=== PATIENT | female | born 1950 | race Caucasian/White ===

== ENCOUNTER 2017-11-07 17:25 | Emergency (ER) | payer MEDICARE, OTHER ==
[~2017-11-07] VITALS: Ht 152.4 cm; Wt 61.2 kg
[~2017-11-07 17:25] MED LIST: ACETAMINOPHEN325 M1 PO; ADVAIR 250-501 EACH INH; ADVAIR HFA 45-218 GM; ALBUTEROL INHAL17 GM IH; ALBUTEROL2.5 MG/3 M IH; ALBUTEROL2.5 MG/32; AMITRIPTYLINE H10 M1; AMITRIPTYLINE H10 M1 PO; ASTAPRO; AZELAST NASAL137 MC1 INH; CARAFATE1 GM/10 ML PO; CEVIMELINE HCL30 MG PO; CIPRO250 M1; CIPROFLOXACIN; CLEOCIN PA75 MG/5 ML PO; CLONAZEPAM; CLONAZEPAM 0.50.5 M1 PO; COLACE100 MG PO; CRESTOR5 MG; CRESTOR5 MG PO; DOCUSATE SODIU100 MG; ENOXAPARIN40 MG/0.1 INJECTION; HYDROCODON-ACE1 EAC5 PO; HYDROCODON-ACE1 EAC7; LASIX 20 MG TAB20 MG PO; LASIX 40 MG TAB40 M1; LIDODERM 5%1 PATC1 TOP; LIDODERM 5%1 PATCH; MIRALAX255 GM PO; MOM PO; NEXIUM; NEXIUM 40 MG CA40 M1 PO; NYSTATIN 100,0015 GM TOP; PERCOCET 5-3251 EACH PO; PHENERGAN 25 MG25 M1 PO; PHENERGAN 25 MG25 MG PO; POTASSIUM20 PO; PREDNISONE; PREDNISONE 10 M10 MG PO; PREDNISONE50 MG PO; PROVENTIL HFA6.7 G1 INH; SYNTHROID; SYNTHROID50 MCG PO; VALIUM2 MG PO; VICODIN 5-5001 EACH PO; VICODIN HP 10-1 EAC1 PO; ZOFRAN ODT4 MG PO; potassium PO
[2017-11-07] MEDS ORDERED: CLINDAMYCI75 MG/5 ML PO (18:26)
[2017-11-07] MEDS ORDERED: ACYCLOVIR200 MG/52 PO (18:26)
[2017-11-07 18:41] VITALS: BP 155/74
== END 2017-11-07 18:41 | disposition home or self-care (01) ==
LOC: M.ERS 17:25
DX: B02.9 Zoster without complications (principal); G43.909 Migraine, unspecified, not intractable, without status migrainosus; J45.909 Unspecified asthma, uncomplicated; M81.0 Age-related osteoporosis without current pathological fracture; Z88.5 Allergy status to narcotic agent; Z88.2 Allergy status to sulfonamides; Z88.0 Allergy status to penicillin; Z88.8 Allergy status to other drugs, medicaments and biological substances; Z88.1 Allergy status to other antibiotic agents; Z86.14 Personal history of Methicillin resistant Staphylococcus aureus infection; Z96.643 Presence of artificial hip joint, bilateral

== ENCOUNTER → 2018-02-13 | Outpatient (CLI) | payer MEDICARE, OTHER ==
[~2018-02-13] MED LIST changes: +ACYCLOVIR200 MG/52 PO; +CLINDAMYCI75 MG/5 ML PO; +CYCLOBENZAPRINE5 MG PO; +ZANAFLEX2 MG PO
== END ==
LOC: M.CT 14:45
DX: M47.892 Other spondylosis, cervical region (principal)

== ENCOUNTER → 2018-03-23 | Outpatient (CLI) | payer MEDICARE, OTHER | LOC: M.RAD 15:30 | DX: M40.295 Other kyphosis, thoracolumbar region (principal); M43.8X5 Other specified deforming dorsopathies, thoracolumbar region ==

== ENCOUNTER → 2018-03-31 | Outpatient (CLI) | payer MEDICARE, OTHER | LOC: M.RAD 15:18 | DX: M54.2 Cervicalgia (principal); M25.78 Osteophyte, vertebrae; V89.2XXD Person injured in unspecified motor-vehicle accident, traffic, subsequent encounter ==

== ENCOUNTER → 2018-04-03 | Outpatient (CLI) | payer MEDICARE, OTHER | LOC: M.NUC 03-26 13:44 | DX: M54.6 Pain in thoracic spine (principal); M47.895 Other spondylosis, thoracolumbar region ==

== ENCOUNTER 2018-06-21 16:49 | Emergency (ER) | payer MEDICARE, OTHER ==
[~2018-06-21] VITALS: Ht 152.4 cm; Wt 61.7 kg
[~2018-06-21 16:49] MED LIST changes: -CYCLOBENZAPRINE5 MG PO; -ZANAFLEX2 MG PO
[2018-06-21 17:47] LABS: URINE BILIRUBIN NEGATIVE (Negative); URINE BLOOD NEGATIVE (Negative); URINE CLARITY CLEAR; URINE COLOR YELLOW; URINE GLUCOSE-RANDOM NEGATIVE (Negative); URINE KETONES NEGATIVE (Negative); URINE LEUKOCYTES-REFLEX NEGATIVE (Negative); URINE NITRITE-REFLEX NEGATIVE (Negative); URINE PROTEIN NEGATIVE (Negative); URINE UROBILINOGEN 0.2 E.U./dl (0.2-1.0)
[2018-06-21] MEDS ORDERED: CYCLOBENZAPRINE5 MG PO (18:02)
[2018-06-21 18:09] VITALS: BP 142/72
== END 2018-06-21 18:10 | disposition home or self-care (01) ==
LOC: M.ERS 16:49
PROVIDERS: Nurse Practitioner Family
DX: S16.1XXA Strain of muscle, fascia and tendon at neck level, initial encounter (principal); S00.83XA Contusion of other part of head, initial encounter; R30.0 Dysuria; G43.909 Migraine, unspecified, not intractable, without status migrainosus; F31.9 Bipolar disorder, unspecified; J45.909 Unspecified asthma, uncomplicated; M81.0 Age-related osteoporosis without current pathological fracture; N30.10 Interstitial cystitis (chronic) without hematuria; Z86.14 Personal history of Methicillin resistant Staphylococcus aureus infection; Z96.643 Presence of artificial hip joint, bilateral; Z88.6 Allergy status to analgesic agent; Z88.5 Allergy status to narcotic agent; Z88.0 Allergy status to penicillin; Z88.2 Allergy status to sulfonamides; Z91.041 Radiographic dye allergy status; Z88.8 Allergy status to other drugs, medicaments and biological substances; W17.89XA Other fall from one level to another, initial encounter; Y93.89 Activity, other specified; Y92.512 Supermarket, store or market as the place of occurrence of the external cause; Y99.8 Other external cause status

== ENCOUNTER → 2018-06-25 | Outpatient (CLI) | payer MEDICARE, OTHER ==
[~2018-06-25] MED LIST changes: +CYCLOBENZAPRINE5 MG PO; +ZANAFLEX2 MG PO
== END ==
LOC: M.RAD 06-19 14:45
DX: Z12.31 Encounter for screening mammogram for malignant neoplasm of breast (principal)

== ENCOUNTER → 2018-09-01 | Outpatient (CLI) | payer MEDICARE, OTHER ==
[~2018-09-01] MED LIST changes: -ZANAFLEX2 MG PO
== END ==
LOC: M.RAD 15:45
DX: K44.9 Diaphragmatic hernia without obstruction or gangrene (principal); J98.11 Atelectasis; S32.009A Unspecified fracture of unspecified lumbar vertebra, initial encounter for closed fracture; M54.5 Low back pain; G89.29 Other chronic pain; M15.9 Polyosteoarthritis, unspecified; R53.82 Chronic fatigue, unspecified; F32.9 Major depressive disorder, single episode, unspecified; X58.XXXA Exposure to other specified factors, initial encounter; Y93.89 Activity, other specified; Y92.89 Other specified places as the place of occurrence of the external cause; Y99.8 Other external cause status

== ENCOUNTER → 2018-09-03 | Outpatient (CLI) | payer MEDICARE, OTHER | LOC: M.CT 14:00 | DX: J98.11 Atelectasis (principal); K44.9 Diaphragmatic hernia without obstruction or gangrene ==

== ENCOUNTER 2018-10-03 17:39 | Emergency (ER) | payer MEDICARE, OTHER ==
[~2018-10-03] VITALS: Ht 152.4 cm; Wt 63.5 kg
[2018-10-03] MEDS ORDERED: ZANAFLEX2 MG PO (18:47)
[2018-10-03 19:36] VITALS: BP 139/78
== END 2018-10-03 19:36 | disposition home or self-care (01) ==
LOC: M.ERS 17:39
DX: M25.512 Pain in left shoulder (principal); G43.909 Migraine, unspecified, not intractable, without status migrainosus; F31.9 Bipolar disorder, unspecified; J45.909 Unspecified asthma, uncomplicated; M81.0 Age-related osteoporosis without current pathological fracture; N30.10 Interstitial cystitis (chronic) without hematuria; Z86.14 Personal history of Methicillin resistant Staphylococcus aureus infection; Z88.0 Allergy status to penicillin; Z88.2 Allergy status to sulfonamides; Z88.1 Allergy status to other antibiotic agents; Z88.6 Allergy status to analgesic agent; Z88.8 Allergy status to other drugs, medicaments and biological substances; Z96.643 Presence of artificial hip joint, bilateral

== ENCOUNTER → 2018-10-29 | Outpatient (CLI) | payer MEDICARE, OTHER ==
[~2018-10-29] MED LIST changes: +ZANAFLEX2 MG PO
== END ==
LOC: M.RAD 15:09
DX: M47.812 Spondylosis without myelopathy or radiculopathy, cervical region (principal); M43.12 Spondylolisthesis, cervical region; V89.2XXA Person injured in unspecified motor-vehicle accident, traffic, initial encounter

== ENCOUNTER 2018-11-22 14:31 | Emergency (ER) | payer MEDICARE, OTHER ==
[~2018-11-22] VITALS: Ht 152.4 cm; Wt 61.2 kg
[2018-11-22] MEDS ORDERED: CIPRO250 M1 PO (14:45)
[2018-11-22 15:43] VITALS: BP 145/67
== END 2018-11-22 15:45 | disposition home or self-care (01) ==
LOC: M.ERS 14:31
DX: G43.909 Migraine, unspecified, not intractable, without status migrainosus (principal); G89.29 Other chronic pain; M25.512 Pain in left shoulder; Z88.0 Allergy status to penicillin; Z88.2 Allergy status to sulfonamides; Z88.5 Allergy status to narcotic agent; Z88.6 Allergy status to analgesic agent; Z88.8 Allergy status to other drugs, medicaments and biological substances

== ENCOUNTER → 2019-01-19 | Outpatient (CLI) | payer MEDICARE, OTHER ==
[~2019-01-19] MED LIST changes: +CIPRO250 M1 PO
== END ==
LOC: M.RAD 11:01
DX: M25.551 Pain in right hip (principal); Z96.643 Presence of artificial hip joint, bilateral; Z88.0 Allergy status to penicillin; Z88.8 Allergy status to other drugs, medicaments and biological substances

== ENCOUNTER → 2019-04-09 | Outpatient (CLI) | payer MEDICARE, OTHER ==
[2019-04-09 10:41] LABS: CREATININE 0.8 mg/dL (0.6-1.3)
== END ==
LOC: M.LAB 10:00 → M.CT 11:00
PROVIDERS: Internal Medicine
DX: M48.55XA Collapsed vertebra, not elsewhere classified, thoracolumbar region, initial encounter for fracture (principal); K42.9 Umbilical hernia without obstruction or gangrene; K44.9 Diaphragmatic hernia without obstruction or gangrene; N23 Unspecified renal colic; G89.29 Other chronic pain; K57.30 Diverticulosis of large intestine without perforation or abscess without bleeding; M51.36 Other intervertebral disc degeneration, lumbar region; Z96.643 Presence of artificial hip joint, bilateral

== ENCOUNTER 2019-04-25 19:21 | Emergency (ER) | payer MEDICARE, OTHER ==
[~2019-04-25] VITALS: Ht 152.4 cm; Wt 62.6 kg
[2019-04-25 21:00] VITALS: BP 138/59
== END 2019-04-25 21:00 | disposition home or self-care (01) ==
LOC: M.ERS 19:21
DX: G44.209 Tension-type headache, unspecified, not intractable (principal); G43.909 Migraine, unspecified, not intractable, without status migrainosus; Z88.6 Allergy status to analgesic agent; Z88.1 Allergy status to other antibiotic agents; Z88.5 Allergy status to narcotic agent; Z91.041 Radiographic dye allergy status; Z88.0 Allergy status to penicillin; Z88.2 Allergy status to sulfonamides; Z88.8 Allergy status to other drugs, medicaments and biological substances

== ENCOUNTER 2019-06-26 20:17 | Emergency (ER) | payer MEDICARE, OTHER ==
[~2019-06-26] VITALS: Ht 152.4 cm; Wt 62.1 kg
[2019-06-26] MEDS ORDERED: LIORESAL 10 MG10 MG PO (20:39)
[2019-06-26 21:23] VITALS: BP 135/60
== END 2019-06-26 21:24 | disposition home or self-care (01) ==
LOC: M.ERS 20:17
DX: G43.909 Migraine, unspecified, not intractable, without status migrainosus (principal); J45.909 Unspecified asthma, uncomplicated; G89.29 Other chronic pain; M54.9 Dorsalgia, unspecified; M81.0 Age-related osteoporosis without current pathological fracture; Z90.12 Acquired absence of left breast and nipple; Z86.14 Personal history of Methicillin resistant Staphylococcus aureus infection; Z96.643 Presence of artificial hip joint, bilateral; Z88.5 Allergy status to narcotic agent; Z88.1 Allergy status to other antibiotic agents; Z88.2 Allergy status to sulfonamides; Z88.8 Allergy status to other drugs, medicaments and biological substances; Z88.6 Allergy status to analgesic agent; Z91.041 Radiographic dye allergy status; Z88.0 Allergy status to penicillin

== ENCOUNTER 2019-07-24 17:05 | Emergency (ER) | payer MEDICARE, OTHER ==
[~2019-07-24] VITALS: Ht 152.4 cm; Wt 63.5 kg
[~2019-07-24 17:05] MED LIST changes: +LIORESAL 10 MG10 MG PO
[2019-07-24 17:23] VITALS: BP 150/79
== END 2019-07-24 18:24 | disposition home or self-care (01) ==
LOC: M.ERS 17:05
DX: G43.909 Migraine, unspecified, not intractable, without status migrainosus (principal); F31.9 Bipolar disorder, unspecified; Z88.6 Allergy status to analgesic agent; Z88.1 Allergy status to other antibiotic agents; Z88.5 Allergy status to narcotic agent; Z91.041 Radiographic dye allergy status; Z88.0 Allergy status to penicillin; Z88.2 Allergy status to sulfonamides; Z88.8 Allergy status to other drugs, medicaments and biological substances; Z96.641 Presence of right artificial hip joint; Z96.642 Presence of left artificial hip joint

== ENCOUNTER → 2019-08-20 | Outpatient (CLI) | payer MEDICARE, OTHER | LOC: M.RAD 14:03 | DX: Z12.31 Encounter for screening mammogram for malignant neoplasm of breast (principal) ==

== ENCOUNTER 2019-08-21 19:45 | Emergency (ER) | payer MEDICARE, OTHER ==
[~2019-08-21] VITALS: Ht 152.4 cm; Wt 63.5 kg
[2019-08-21 21:12] LABS: ABSOLUTE LYMPHOCYTES 0.9 thou/uL (0.8-5.3); ABSOLUTE MONOCYTES 0.5 thou/uL (0.0-1.2); ABSOLUTE NEUTROPHILS 6.1 thou/uL (1.6-8.1); BASOPHILS 0.2 %; EOSINOPHILS 0.2 %; HEMATOCRIT 33.8 % (37.0-47.0); HEMOGLOBIN 11.1 gm/dL (12.0-15.0); LYMPHOCYTES 11.3 %; MCH 27.2 pg (26.0-34.0); MCHC 32.9 g/dL (28.0-37.0); MCV 82.6 fL (80.0-100.0); MONOCYTES 7.1 %; MPV 8.6 fl. (7.2-11.1); NUCLEATED RBCS 0 /100WBC; PLATELET COUNT* 256 thou/uL (150-400); POLYS 81.2 %; RDW-CV 17.1 % (10.5-14.5); WBC 7.5 thou/uL (4.0-11.0)
[2019-08-21 21:19] VITALS: BP 143/62
== END 2019-08-21 21:19 | disposition left against medical advice (07) ==
LOC: M.ERS 19:45
PROVIDERS: Nurse Practitioner Family
DX: M25.551 Pain in right hip (principal); G43.909 Migraine, unspecified, not intractable, without status migrainosus; F31.9 Bipolar disorder, unspecified; J45.909 Unspecified asthma, uncomplicated; G89.29 Other chronic pain; M54.5 Low back pain; M81.0 Age-related osteoporosis without current pathological fracture; Z86.14 Personal history of Methicillin resistant Staphylococcus aureus infection; Z96.643 Presence of artificial hip joint, bilateral; Z88.6 Allergy status to analgesic agent; Z88.5 Allergy status to narcotic agent; Z88.2 Allergy status to sulfonamides; Z88.0 Allergy status to penicillin; Z91.041 Radiographic dye allergy status

== ENCOUNTER → 2019-10-05 | Outpatient (CLI) | payer MEDICARE, OTHER | LOC: M.ULTRA 16:37 | DX: K44.9 Diaphragmatic hernia without obstruction or gangrene (principal); J84.10 Pulmonary fibrosis, unspecified; M81.0 Age-related osteoporosis without current pathological fracture; M79.641 Pain in right hand; M79.89 Other specified soft tissue disorders ==

== ENCOUNTER 2019-10-23 18:23 | Emergency (ER) | payer MEDICARE, OTHER ==
[~2019-10-23] VITALS: Ht 152.4 cm; Wt 63.0 kg
[2019-10-23 19:35] VITALS: BP 143/67
== END 2019-10-23 19:35 | disposition home or self-care (01) ==
LOC: M.ERS 18:23
DX: G43.909 Migraine, unspecified, not intractable, without status migrainosus (principal); F31.9 Bipolar disorder, unspecified; J45.909 Unspecified asthma, uncomplicated; G89.29 Other chronic pain; M54.5 Low back pain; M81.0 Age-related osteoporosis without current pathological fracture; Z86.14 Personal history of Methicillin resistant Staphylococcus aureus infection; Z88.6 Allergy status to analgesic agent; Z88.2 Allergy status to sulfonamides; Z88.0 Allergy status to penicillin; Z88.5 Allergy status to narcotic agent

== ENCOUNTER 2019-12-15 20:25 | Emergency (ER) | payer MEDICARE, OTHER ==
[~2019-12-15] VITALS: Ht 160 cm; Wt 66.7 kg
[2019-12-15 21:10] VITALS: BP 144/74
== END 2019-12-15 21:10 | disposition home or self-care (01) ==
LOC: M.ERS 20:25
DX: S46.811A Strain of other muscles, fascia and tendons at shoulder and upper arm level, right arm, initial encounter (principal); G43.909 Migraine, unspecified, not intractable, without status migrainosus; J45.909 Unspecified asthma, uncomplicated; Z86.14 Personal history of Methicillin resistant Staphylococcus aureus infection; Z96.643 Presence of artificial hip joint, bilateral; Z88.6 Allergy status to analgesic agent; Z88.0 Allergy status to penicillin; Z88.2 Allergy status to sulfonamides; Z91.041 Radiographic dye allergy status; Z88.8 Allergy status to other drugs, medicaments and biological substances; X50.9XXA Other and unspecified overexertion or strenuous movements or postures, initial encounter; Y93.89 Activity, other specified; Y92.89 Other specified places as the place of occurrence of the external cause; Y99.8 Other external cause status

== ENCOUNTER → 2020-04-20 | Outpatient (CLI) | payer MEDICARE, OTHER | LOC: M.RAD 04-18 14:30 | PROVIDERS: ATTEND Internal Medicine | DX: M79.601 Pain in right arm (principal); M79.602 Pain in left arm; M85.88 Other specified disorders of bone density and structure, other site ==

== ENCOUNTER 2020-05-20 13:33 | Emergency (ER) | payer MEDICARE, OTHER ==
[~2020-05-20] VITALS: Ht 152.4 cm; Wt 61.2 kg
[2020-05-20] MEDS ORDERED: LIDODERM1 EACH TRANSDERM (14:07)
[2020-05-20 14:28] VITALS: BP 153/74
--- NOTE | 2020-05-22 10:00 | EKG ---
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 : 1950 Requested By: Sharmaine Butler Order Number: [id number] MD: Kvng Barbour Measurements Intervals [place] Rate: 78 P: 47 MN: 161 QRS: 12 QRSD: 85 T: 22 QT: 378 QTc: 431 Interpretive Statements Sinus rhythm Abnormal R-wave progression, early transition Compared to ECG 05/11/2013 01:00:18 No significant changes Electronically Signed On 05-22-2020 10:00:18 CDT by Kvng Barbour [email or web address] <ELECTRONICALLY SIGNED> By: Kvng Barbour MD, [facility] 05/22/20 1000 1403 1403 Kvng Barbour MD, [facility] /EPI
== END 2020-05-20 14:30 | disposition home or self-care (01) ==
LOC: M.ERS 13:33
DX: M54.2 Cervicalgia (principal); G43.909 Migraine, unspecified, not intractable, without status migrainosus; J45.909 Unspecified asthma, uncomplicated; Z88.6 Allergy status to analgesic agent; Z88.0 Allergy status to penicillin; Z88.2 Allergy status to sulfonamides; Z88.8 Allergy status to other drugs, medicaments and biological substances; Z91.041 Radiographic dye allergy status; Z86.14 Personal history of Methicillin resistant Staphylococcus aureus infection; Z96.643 Presence of artificial hip joint, bilateral

== ENCOUNTER 2020-08-13 19:13 | Emergency (ER) | payer MEDICARE, OTHER ==
[~2020-08-13] VITALS: Ht 152.4 cm; Wt 63.5 kg
[~2020-08-13 19:13] MED LIST changes: +LIDODERM1 EACH TRANSDERM
[2020-08-13] MEDS ORDERED: ZOFRAN ODT4 MG PO (19:36)
[2020-08-13 20:03] VITALS: BP 135/67
== END 2020-08-13 20:04 | disposition home or self-care (01) ==
LOC: M.ERS 19:13
DX: M25.512 Pain in left shoulder (principal); Z76.0 Encounter for issue of repeat prescription; G43.909 Migraine, unspecified, not intractable, without status migrainosus; J45.909 Unspecified asthma, uncomplicated; Z86.14 Personal history of Methicillin resistant Staphylococcus aureus infection; Z88.6 Allergy status to analgesic agent; Z91.041 Radiographic dye allergy status; Z88.0 Allergy status to penicillin; Z88.1 Allergy status to other antibiotic agents; Z88.2 Allergy status to sulfonamides; Z88.8 Allergy status to other drugs, medicaments and biological substances

== ENCOUNTER → 2020-08-23 | Outpatient (CLI) | payer MEDICARE, OTHER | LOC: M.RAD 11:00 | PROVIDERS: ATTEND Internal Medicine | DX: Z12.31 Encounter for screening mammogram for malignant neoplasm of breast (principal) ==

== ENCOUNTER 2020-09-03 19:50 | Emergency (ER) | payer MEDICARE, OTHER ==
[~2020-09-03] VITALS: Ht 152.4 cm; Wt 63.5 kg
[2020-09-03 20:47] VITALS: BP 150/70
== END 2020-09-03 20:47 | disposition home or self-care (01) ==
LOC: M.ERS 19:50
DX: G89.29 Other chronic pain (principal); M25.512 Pain in left shoulder; J45.909 Unspecified asthma, uncomplicated; G43.909 Migraine, unspecified, not intractable, without status migrainosus; Z96.643 Presence of artificial hip joint, bilateral; Z86.14 Personal history of Methicillin resistant Staphylococcus aureus infection; Z88.6 Allergy status to analgesic agent; Z88.5 Allergy status to narcotic agent; Z91.041 Radiographic dye allergy status; Z88.0 Allergy status to penicillin; Z88.2 Allergy status to sulfonamides; Z88.1 Allergy status to other antibiotic agents; Z88.8 Allergy status to other drugs, medicaments and biological substances

== ENCOUNTER 2020-09-06 19:22 | Emergency (ER) | payer MEDICARE, OTHER ==
[~2020-09-06] VITALS: Ht 152.4 cm; Wt 63.5 kg
[2020-09-06 20:40] VITALS: BP 134/74
== END 2020-09-06 20:40 | disposition home or self-care (01) ==
LOC: M.ERS 19:22
DX: M25.512 Pain in left shoulder (principal); G43.909 Migraine, unspecified, not intractable, without status migrainosus; J45.909 Unspecified asthma, uncomplicated; Z86.14 Personal history of Methicillin resistant Staphylococcus aureus infection; Z88.6 Allergy status to analgesic agent; Z88.5 Allergy status to narcotic agent; Z88.0 Allergy status to penicillin; Z88.2 Allergy status to sulfonamides; Z88.1 Allergy status to other antibiotic agents; Z88.8 Allergy status to other drugs, medicaments and biological substances; Z91.041 Radiographic dye allergy status

== ENCOUNTER 2020-11-23 19:38 | Emergency (ER) | payer MEDICARE, OTHER ==
[~2020-11-23] VITALS: Ht 152.4 cm; Wt 63.5 kg
[2020-11-23 20:46] VITALS: BP 132/70
--- NOTE | 2020-11-24 13:00 | EKG ---
[place] [address] ELECTROCARDIOGRAM REPORT Name: HEATH MISTRY Room: [facility]#: [id number] Admission: 11/23/20 Attend Phys: Discharge: 11/23/20 Date of : 50 Date of Service: 11/23/20 [facility] Report #: [id number] THIS REPORT FOR: //name// [facility] ED Test Date: 2020-11-23 Test Time: 19:50:21 Pat Name: HEATH MISTRY Department: Room: Gender: Bung Sewer: [place] : 1950 Requested By: Sharmaine Butler Order Number: [id number] Chacha MD: Nikita Rosario Measurements Intervals [place] Rate: 81 P: 9 DC: 151 QRS: 10 QRSD: 84 T: 18 QT: 355 QTc: 412 Interpretive Statements Sinus rhythm Compared to ECG 05/20/2020 14:03:07 No significant changes Electronically Signed On 11-24-2020 12:59:46 [employer] by Nikita Rosario [email or web address] <ELECTRONICALLY SIGNED> By: Nikita Rosario MD, [facility] 11/24/20 1259 [birth year] Nikita Rosario MD, FACC /EPI
== END 2020-11-23 20:47 | disposition home or self-care (01) ==
LOC: M.ERS 19:38
DX: G89.29 Other chronic pain (principal); M25.512 Pain in left shoulder; G43.909 Migraine, unspecified, not intractable, without status migrainosus; Z79.899 Other long term (current) drug therapy; Z88.0 Allergy status to penicillin; Z88.1 Allergy status to other antibiotic agents; Z88.5 Allergy status to narcotic agent; Z88.6 Allergy status to analgesic agent; Z91.041 Radiographic dye allergy status; Z88.8 Allergy status to other drugs, medicaments and biological substances; Z20.828 Contact with and (suspected) exposure to other viral communicable diseases

== ENCOUNTER 2021-02-22 16:07 | Emergency (ER) | payer MEDICARE ==
[~2021-02-22] VITALS: Ht 162.6 cm; Wt 81.7 kg
[2021-02-22 18:02] VITALS: BP 138/68
== END 2021-02-22 18:04 | disposition home or self-care (01) ==
LOC: M.ERS 16:07
DX: M25.551 Pain in right hip (principal); M54.5 Low back pain; M79.604 Pain in right leg; G43.909 Migraine, unspecified, not intractable, without status migrainosus; F31.9 Bipolar disorder, unspecified; M81.0 Age-related osteoporosis without current pathological fracture; J45.909 Unspecified asthma, uncomplicated; Z98.890 Other specified postprocedural states; Z96.643 Presence of artificial hip joint, bilateral; Z86.14 Personal history of Methicillin resistant Staphylococcus aureus infection; Z79.899 Other long term (current) drug therapy; Z88.6 Allergy status to analgesic agent; Z88.1 Allergy status to other antibiotic agents; Z88.5 Allergy status to narcotic agent; Z91.041 Radiographic dye allergy status; Z88.0 Allergy status to penicillin; Z88.2 Allergy status to sulfonamides; Z88.8 Allergy status to other drugs, medicaments and biological substances

== ENCOUNTER 2021-06-10 19:57 | Emergency (ER) | payer MEDICARE, OTHER ==
[~2021-06-10] VITALS: Ht 152.4 cm; Wt 65.8 kg
[2021-06-10 21:44] VITALS: BP 135/76
--- NOTE | 2021-06-11 13:40 | EKG ---
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[employer]: : 1950 Requested By: Megan Hoover Order Number: [id number] Reading MD: Kvng Barbour Measurements Intervals [place] Rate: 79 P: 3 ME: 133 QRS: 9 QRSD: 90 T: -2 QT: 380 QTc: 436 Interpretive Statements Sinus rhythm RSR' in V1 or V2, probably normal variant Borderline T abnormalities, inferior leads Baseline wander in lead(s) II,III,aVR,aVL,aVF Compared to ECG 11/23/2020 19:50:21 RSR' in V1 or V2 now present Electronically Signed On 06-11-2021 13:39:58 CDT by Kvng Barbour [email or web address] <ELECTRONICALLY SIGNED> By: Kvng Barbour MD, [facility] 06/11/21 1339 10 10 Kvng Barbour MD, [facility] /EPI
== END 2021-06-10 21:44 | disposition home or self-care (01) ==
LOC: M.ERS 19:57
DX: M25.521 Pain in right elbow (principal); G89.29 Other chronic pain; G43.909 Migraine, unspecified, not intractable, without status migrainosus; Z88.6 Allergy status to analgesic agent; Z88.5 Allergy status to narcotic agent; Z88.0 Allergy status to penicillin; Z88.1 Allergy status to other antibiotic agents; Z91.041 Radiographic dye allergy status

== ENCOUNTER → 2021-06-28 | Outpatient (CLI) | payer MEDICARE, OTHER | LOC: M.ULTRA 15:27 | PROVIDERS: ATTEND Podiatrist Foot Surgery | DX: R60.0 Localized edema (principal) ==

== ENCOUNTER → 2021-07-24 | Outpatient (CLI) | payer MEDICARE, OTHER ==
--- NOTE | 2021-07-24 16:36 | 2DMMODE ---
[place] [address] 2 D/M-MODE ECHOCARDIOGRAM Name: HEATH MISTRY Room: [facility]#: [id number] Admission: 07/24/21 Attend Phys: Amna Taylor MD Discharge: Date of : 50 Date of Service: 07/24/21 1635 Report #: [id number] THIS REPORT FOR: cc: Amna Taylor MD, Lin W. MD Blick, David R. MD [facility] ~ APPROVED REPORT Study performed: 07/24/2021 12:32:17 EXAM: Comprehensive 2D, Doppler, and color-flow Echocardiogram Patient Location: Out-Patient BSA: 1.63 HR: 74 bpm BP: 128/60 mmHg Other Information Study Quality: Good Indications Dyspnea Peripheral Edema 2D Dimensions IVSd: 10.62 (7-11mm) LVOT Diam: 20.79 (18-24mm) LVDd: 33.75 mm PWd: 7.68 (7-11mm) Ascending Ao: 31.74 (22-36mm) LVDs: 20.78 (25-40mm) Aortic Root: 30.18 mm Volumes Left Atrial Volume (Systole) LA ESV Index: 13.30 mL/m2 Aortic Valve AoV Peak Gavin.: 1.32 m/s AO Peak Gr.: 6.97 mmHg LVOT Max P.26 mmHg AO Mean Gr.: 3.44 mmHg LVOT Mean P.20 mmHg LVOT Max V: 1.03 m/s AO V2 VTI: 24.22 cm LVOT Mean V: 0.69 m/s RONEN (VTI): 2.97 cm2 LVOT V1 VTI: 21.20 [place] [address] 2 D/M-MODE ECHOCARDIOGRAM Name: HEATH MISTRY Room: [facility]#: [id number] Admission: 07/24/21 Attend Phys: Amna Taylor MD Discharge: Date of : 50 Date of Service: 07/24/21 1635 Report #: [id number] E/A Ratio: 0.82 MV Decel. Time: 167.83 ms MV E Max Gavin.: 0.55 m/s MV PHT: 48.67 ms MVA (PHT): 4.52 cm2 TDI E/Lateral E': 5.50 E/Medial E': 3.93 Medial E' Gavin.: 0.14 m/s Lateral E' Gavin.: 0.10 m/s Pulmonary Valve PV Peak Gavin.: 1.09 m/s PV Peak Gr.: 4.79 mmHg Tricuspid Valve RAP Estimate: 5.00 mmHg TR Peak Gr.: 23.98 mmHg RVSP: 28.98 mmHg PA Pressure: 28.98 mmHg Left Ventricle The left ventricle is normal size. There is normal LV segmental wall motion. There is normal left ventricular wall thickness. Left ventricular systolic function is normal. The left ventricular ejection fraction is within the normal range. LVEF is 55-60%. Grade I - abnormal relaxation pattern. Right Ventricle The right ventricle is normal size. The right ventricular systolic function is normal. Atria The left atrium size is normal. The right atrium size is normal. Aortic Valve The aortic valve is normal in structure. No aortic regurgitation is present. There is no aortic valvular stenosis. Mitral Valve The mitral valve is normal in structure. There is no mitral valve regurgitation noted. No evidence of mitral valve stenosis. Tricuspid Valve The tricuspid valve is normal in structure. [place] [address] 2 D/M-MODE ECHOCARDIOGRAM Name: HEATH MISTRY Room: [facility]#: [id number] Admission: 07/24/21 Attend Phys: Amna Taylor MD Discharge: Date of : 50 Date of Service: 07/24/21 1635 Report #: [id number] Pulmonic Valve The pulmonary valve is normal in structure. Mild pulmonic regurgitation. Great Vessels The aortic root is normal in size. IVC is not well visualized. Pericardium There is no pericardial effusion. <Conclusion> Left ventricular systolic function is normal. The left ventricular ejection fraction is within the normal range. <ELECTRONICALLY SIGNED> By: Kvng Barbour MD, [facility] 07/24/21 1635 163 163 Kvng Barbour MD, FAC /INF
== END ==
LOC: M.CRD 07-11 14:00
PROVIDERS: ATTEND Internal Medicine
DX: I08.8 Other rheumatic multiple valve diseases (principal); R60.0 Localized edema

== ENCOUNTER → 2021-08-28 | Outpatient (CLI) | payer MEDICARE, OTHER | LOC: M.RAD 10:57 | PROVIDERS: ATTEND Internal Medicine | DX: Z12.31 Encounter for screening mammogram for malignant neoplasm of breast (principal) ==

== ENCOUNTER → 2021-11-22 | Outpatient (CLI) | payer MEDICARE, OTHER | LOC: M.ULTRA 11-21 10:30 | PROVIDERS: ATTEND Internal Medicine | DX: M79.89 Other specified soft tissue disorders (principal); M79.669 Pain in unspecified lower leg ==

== ENCOUNTER 2021-12-26 18:40 | Emergency (ER) | payer MEDICARE, OTHER ==
[~2021-12-26] VITALS: Ht 152.4 cm; Wt 67.1 kg
[2021-12-26 19:38] VITALS: BP 137/96
== END 2021-12-26 19:38 | disposition home or self-care (01) ==
LOC: M.ERS 18:40
DX: G89.29 Other chronic pain (principal); M54.6 Pain in thoracic spine; G43.909 Migraine, unspecified, not intractable, without status migrainosus; F31.9 Bipolar disorder, unspecified; Z79.899 Other long term (current) drug therapy; Z96.643 Presence of artificial hip joint, bilateral; Z86.14 Personal history of Methicillin resistant Staphylococcus aureus infection; Z88.6 Allergy status to analgesic agent; Z88.1 Allergy status to other antibiotic agents; Z88.5 Allergy status to narcotic agent; Z91.041 Radiographic dye allergy status; Z88.0 Allergy status to penicillin; Z88.2 Allergy status to sulfonamides; Z88.8 Allergy status to other drugs, medicaments and biological substances